=== PATIENT | male | born 1995 | race Caucasian/White ===

== ENCOUNTER 2022-08-07 13:19 | Emergency (ER) | payer BC ==
[~2022-08-07] VITALS: Ht 172.7 cm; Wt 86.2 kg
[2022-08-07] MEDS ORDERED: NS IV 1000 ML 1,000 ML IV STA (13:43)
[2022-08-07] MEDS ORDERED: ONDANSETRON 4 MG/2 ML (SDV) Z0FRAN IVP ONE (13:45)
[2022-08-07] MEDS ORDERED: KETOROLAC 30 MG/ML VIAL IVP ONE (13:45)
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
[2022-08-07 13:51] LABS: BASOPHILS % (AUTO) 1 % (0-10); EOSINOPHILS # (AUTO) 0.1 10^3/uL (0.0-0.3); EOSINOPHILS % (AUTO) 2 % (0-10); HEMATOCRIT 42 % (40-54); HEMOGLOBIN 15.4 g/dL (13.3-17.7); LYMPHOCYTES # (AUTO) 1.9 10^3/uL (1.0-4.0); LYMPHOCYTES % (AUTO) 39 % (12-44); MEAN CORPUSCULAR HEMOGLOBIN 31 pg (25-34); MEAN CORPUSCULAR HGB CONC 36 g/dL (32-36); MEAN CORPUSCULAR VOLUME 86 fL (80-99); MEAN PLATELET VOLUME 9.4 fL (9.0-12.2); MONOCYTES # (AUTO) 0.4 10^3/uL (0.0-1.0); MONOCYTES % (AUTO) 8 % (0-12); NEUTROPHILS # (AUTO) 2.5 10^3/uL (1.8-7.8); NEUTROPHILS % (AUTO) 51 % (42-75); PLATELET COUNT 238 10^3/uL (130-400); WHITE BLOOD COUNT 4.9 10^3/uL (4.3-11.0)
[2022-08-07 13:56] LABS: ALBUMIN 4.5 GM/DL (3.2-4.5)
[2022-08-07 13:57] LABS: CALCIUM 9.8 MG/DL (8.5-10.1)
[2022-08-07 13:59] LABS: TOTAL PROTEIN 8.1 GM/DL (6.4-8.2)
[2022-08-07 14:00] LABS: BILIRUBIN,TOTAL 0.5 MG/DL (0.1-1.0)
[2022-08-07 14:02] LABS: CREATININE SERUM 1.01 MG/DL (0.60-1.30)
[2022-08-07 14:30] LABS: BILIRUBIN,URINE NEGATIVE (NEGATIVE); CLARITY,URINE CLEAR; COLOR,URINE YELLOW; GLUCOSE, URINE (UA) NEGATIVE (NEGATIVE); KETONES,URINE NEGATIVE (NEGATIVE); LEUKOCYTE ESTERASE ,URINE 1+ (NEGATIVE); NITRITE,URINE NEGATIVE (NEGATIVE); PROTEIN,URINE NEGATIVE (NEGATIVE)
[2022-08-07 14:38] LABS: AMORPHOUS SEDIMENT,UR RARE AMOR URATES /LPF; BACTERIA,URINE FEW /HPF; RBC,URINE 0-2 /HPF
--- NOTE | 2022-08-07 14:43 | Diagnostic Imaging Report ---
PROCEDURE: CT urinary tract, rule out kidney stone. TECHNIQUE: Multiple contiguous axial images were obtained through the abdomen and pelvis without the use of intravenous contrast. Auto Exposure Controls were utilized during the CT exam to meet ALARA standards for radiation dose reduction. INDICATION: Right flank pain Noncontrast CT imaging of the abdomen and pelvis is performed. Unenhanced images of liver and spleen are unremarkable. Gallbladder is contracted but otherwise unremarkable in appearance. No pancreatic, adrenal gland or renal abnormality is seen. There is no nephrolithiasis or obstructive uropathy. There is no evidence of bladder stone. There is no pathologically enlarged adenopathy within the abdomen or pelvis. The appendix has a normal appearance. IMPRESSION: No acute abnormality. Dictated by: Dictated on workstation # [id number]
[2022-08-07] MEDS ORDERED: morphine INJ 10 MG/ML 1ML (SYR OR VIAL) IVP ONE (14:45)
[2022-08-07] MEDS ORDERED: ACHD5005 PO (15:50)
[2022-08-07 16:00] VITALS: BP 115/73
[2022-08-07] MEDS ORDERED: CEPH500T PO (16:05)
== END 2022-08-07 16:00 | disposition home or self-care (01) ==
LOC: ER 13:28
DX: M54.50 Low back pain, unspecified (principal); G89.29 Other chronic pain; D72.829 Elevated white blood cell count, unspecified; Z79.1 Long term (current) use of non-steroidal anti-inflammatories (NSAID); Z87.442 Personal history of urinary calculi
CPT/HCPCS: 36415; 74176; 80053; 81000; 82553; 83690; 85025; 87088